=== PATIENT | female | born 1950 | race Asian ===

== ENCOUNTER → 2016-09-08 | Outpatient (CLI) | payer MEDICARE ==
[~2016-09-08] MED LIST: ACET-784 PO; ACET1TAB12 PO; ALBU8.5H IH; AMLO2.5T PO; ASPI-1093 PO; CA C1TAB73 PO; FAMO20 PO; FOLI1CAP2 PO; INSLAN SQ; INSU100C3 SQ; LEVO5TAB13 PO; LISI-661 PO; METF500T4 PO; METF500T7 PO; METO25 PO; MONT10TA21 PO; OMEG-53 PO; OMEP20 PO; PARO10OR3 PO; PRAV20TA4 PO; PREG50 PO; SIMV40TA5 PO
[2016-09-08 12:14] LABS: ALBUMIN 3.9 g/dL (3.4-5.0); BILIRUBIN,TOTAL 0.6 mg/dL (0.1-1.0); CALCIUM, TOTAL 9.5 mg/dL (8.8-10.5); CHOL/HDL RATIO 2.9 (3.9-5.7); CREATININE 0.98 mg/dL (0.60-1.30); POTASSIUM 4.9 mmol/L (3.5-5.1)
[2016-09-08 13:07] LABS: APPEARANCE,URINE CLEAR (CLEAR); GLUCOSE, URINE (UA) NEGATIVE (NEGATIVE); KETONES,URINE NEGATIVE (NEGATIVE); LEUKOCYTE ESTERASE ,URINE MODERATE (NEGATIVE); OCCULT BLOOD,URINE NEGATIVE (NEGATIVE); PROTEIN,URINE TRACE (NEGATIVE)
[2016-09-08 13:09] LABS: ADD UA MICROSCOPIC YES
[2016-09-08 13:21] LABS: RBC,URINE 0-2 /HPF (0-2); SQUAMOUS EPITHELIAL CELL,UR Few /LPF (None Seen)
== END | disposition home or self-care (01) ==
LOC: LABPV 09:53
PROVIDERS: ATTEND Internal Medicine Nephrology
DX: I12.9 Hypertensive chronic kidney disease with stage 1 through stage 4 chronic kidney disease, or unspecified chronic kidney disease (principal); N18.3 Chronic kidney disease, stage 3 (moderate); E11.22 Type 2 diabetes mellitus with diabetic chronic kidney disease; E78.5 Hyperlipidemia, unspecified
CPT/HCPCS: 82306; 82570; 84156; 87086

== ENCOUNTER 2016-10-08 08:46 | Day surgery (SDC) | payer MEDICARE ==
[~2016-10-08] VITALS: Ht 147.3 cm; Wt 65.9 kg
[~2016-10-08 08:46] MED LIST changes: +0.9% SODIUM CHLORIDE 10 ML SYRINGE IVP PRN; -ACET-784 PO; -ASPI-1093 PO; -LEVO5TAB13 PO; -METF500T4 PO; -METO25 PO; -OMEP20 PO; -PRAV20TA4 PO
[2016-10-08] MEDS ORDERED: ACET-784 PO (09:19)
[2016-10-08] MEDS ORDERED: ASPI-1093 PO (09:37)
[2016-10-08] MEDS ORDERED: OMEP20 PO (09:37)
[2016-10-08] MEDS ORDERED: PRAV20TA4 PO (09:37)
[2016-10-08] MEDS ORDERED: LEVO5TAB13 PO (09:37)
[2016-10-08] MEDS ORDERED: METO25 PO (09:37)
[2016-10-08 09:47] LABS: CALCIUM, TOTAL 9.1 mg/dL (8.8-10.5); CREATININE 1.33 mg/dL (0.60-1.30)
[2016-10-08] MEDS ORDERED: METOPROLOL TARTRATE 50 MG TABLET PO ONE (10:00)
[2016-10-08] MEDS ORDERED: SODIUM BICARBONATE 150 MEQ in DEXTROSE 5%-WATER 850 ML IV ONE (11:00)
[2016-10-08] MEDS ORDERED: IOVERSOL 350 MG/ML 150 ML VIAL ONE (11:30)
[2016-10-08] MEDS ORDERED: SODIUM CHLORIDE 0.9% 100 ML ONE (11:30)
[2016-10-08] MEDS ORDERED: METOPROLOL TARTRATE 5 MG/5 ML VIAL ONE (11:59)
[2016-10-08] MEDS ORDERED: NITROGLYCERIN 400 MCG/SUBLINGUAL SPRAY 4.9 GM BOTTLE SL ONE (11:59)
[2016-10-08] MEDS ORDERED: METF500T4 PO (15:03)
== END 2016-10-08 14:30 | disposition home or self-care (01) ==
LOC: SDS 08:46 → EDSTATUS 11:00 → SDS 14:30
PROVIDERS: ATTEND Internal Medicine Cardiovascular Disease
DX: R07.9 Chest pain, unspecified (principal)
CPT/HCPCS: 36415; 75574; 80048; 93005; J3490; J7050; J7060; Q9967

== ENCOUNTER 2016-12-12 06:49 | Emergency (ER) | payer MEDICARE ==
[~2016-12-12] VITALS: Ht 149.9 cm; Wt 52.3 kg
[~2016-12-12 06:49] MED LIST changes: -0.9% SODIUM CHLORIDE 10 ML SYRINGE IVP PRN; +ACET-784 PO; -ACET1TAB12 PO; -ALBU8.5H IH; +ASPI-1093 PO; -FAMO20 PO; -FOLI1CAP2 PO; +LEVO5TAB13 PO; -LISI-661 PO; +METF500T4 PO; -METF500T7 PO; +METO25 PO; -MONT10TA21 PO; +OMEP20 PO; -PARO10OR3 PO; +PRAV20TA4 PO; -PREG50 PO; -SIMV40TA5 PO
[2016-12-12 07:07] LABS: GLUCOSE,POINT OF CARE 185 MG/DL (70-110)
[2016-12-12] MEDS ORDERED: ONDANSETRON HCL 4 MG/2 ML VIAL IVP ONE (08:00)
[2016-12-12] MEDS ORDERED: ALBUTEROL SULFATE 2.5 MG/0.5 ML NEB SOLUTION NEB ONE (08:00)
[2016-12-12] MEDS ORDERED: SODIUM CHLORIDE 0.9% 1,000 ML IV ONE (08:00)
[2016-12-12] MEDS ORDERED: IPRATROPIUM BROMIDE 0.5 MG/2.5 ML NEB SOLUTION NEB ONE (08:00)
[2016-12-12] MEDS ORDERED: 0.9% SODIUM CHLORIDE 5 ML NEB SOLUTION NEB ONE (08:13)
[2016-12-12 08:26] LABS: EOSINOPHILS % (AUTO) 1.1 % (1.0-6.0); HEMATOCRIT 39.3 % (36-46); HEMOGLOBIN 12.8 g/dL (12.0-16.0); LYMPHOCYTES # (AUTO) 0.5 K/uL (1.0-4.8); MEAN CORPUSCULAR HEMOGLOBIN 28.9 pg (26.0-34.0); MEAN CORPUSCULAR HGB CONC 32.6 G/dL (31.0-37.0); MEAN CORPUSCULAR VOLUME 88 fL (80-100); MONOCYTES # (AUTO) 0.1 K/uL (0.1-1.0); MONOCYTES % (AUTO) 0.6 % (2.0-9.0); NEUTROPHILS # (AUTO) 11.4 K/uL (1.8-7.7); PLATELET COUNT (AUTO) 189 K/uL (150-450); RED BLOOD CELL COUNT(AUTO) 4.45 MIL/uL (4.00-5.20); RED CELL DISTRIBUTION WIDTH 13.5 % (11.5-14.5); WHITE BLOOD COUNT (AUTO) 12.1 K/uL (4.5-11.0)
[2016-12-12 08:27] LABS: NEUTROPHILS % (AUTO) 94.3 % (40.0-70.0)
[2016-12-12 08:37] LABS: CALCIUM, TOTAL 8.9 mg/dL (8.8-10.5); CREATININE 1.42 mg/dL (0.60-1.30)
[2016-12-12 08:42] LABS: ALBUMIN 3.8 g/dL (3.4-5.0); BILIRUBIN,TOTAL 0.6 mg/dL (0.1-1.0); TOTAL PROTEIN, SERUM 7.9 g/dL (6.4-8.2)
[2016-12-12 10:11] VITALS: BP 132/69
== END 2016-12-12 10:36 | disposition home or self-care (01) ==
LOC: EMS 06:51
DX: J98.01 Acute bronchospasm (principal); R11.2 Nausea with vomiting, unspecified; R19.7 Diarrhea, unspecified; J45.909 Unspecified asthma, uncomplicated; E11.9 Type 2 diabetes mellitus without complications; I10 Essential (primary) hypertension; E78.00 Pure hypercholesterolemia, unspecified; Z79.4 Long term (current) use of insulin; Z79.82 Long term (current) use of aspirin
CPT/HCPCS: 36415; 71020; 80053; 82962; 85025; 94640; 96372; 99285; J2405; J7030

== ENCOUNTER 2023-08-29 09:48 | Emergency (ER) | payer MEDICARE, MEDICAID ==
[~2023-08-29] VITALS: Ht 149.9 cm; Wt 145.0 kg
[~2023-08-29 09:48] MED LIST changes: -AMLO2.5T PO; +AMLO2.5T96 PO; -ASPI-1093 PO; +ASPI-1444 PO; +METF-1211 PO; -METF500T4 PO
[2023-08-29 09:52] VITALS: BP 150/57; PULSE 70; RESP 16; TEMP 97.7
[2023-08-29 10:44] LABS: EOSINOPHILS % (AUTO) 2.3 % (1.0-6.0); HEMATOCRIT 41.5 % (36-46); HEMOGLOBIN 13.6 g/dL (12.0-16.0); LYMPHOCYTES % (AUTO) 39.2 % (22.0-44.0); MEAN CORPUSCULAR HEMOGLOBIN 29.1 pg (26.0-34.0); MEAN CORPUSCULAR HGB CONC 32.7 G/dL (31.0-37.0); MEAN CORPUSCULAR VOLUME 89 fL (80-100); MONOCYTES # (AUTO) 0.4 K/uL (0.1-1.0); NEUTROPHILS # (AUTO) 2.6 K/uL (1.8-7.7); NEUTROPHILS % (AUTO) 49.5 % (40.0-70.0); PLATELET COUNT (AUTO) 194 K/uL (150-450); RED BLOOD CELL COUNT(AUTO) 4.66 MIL/uL (4.00-5.20); RED CELL DISTRIBUTION WIDTH 13.8 % (11.5-14.5); WHITE BLOOD COUNT (AUTO) 5.2 K/uL (4.5-11.0)
[2023-08-29 10:59] LABS: CALCIUM, TOTAL 9.4 mg/dL (8.8-10.5); CREATININE 1.04 mg/dL (0.60-1.30); POTASSIUM 4.1 mmol/L (3.5-5.1)
[2023-08-29 11:05] LABS: ALBUMIN 4.3 g/dL (3.4-5.0); BILIRUBIN,TOTAL 0.6 mg/dL (0.1-1.0); TOTAL PROTEIN, SERUM 7.9 g/dL (6.4-8.2)
[2023-08-29] MEDS ORDERED: DIPHENOXYLATE/ATROP 2.5-0.025 MG TABLET PO ONE (14:00)
[2023-08-29] MEDS ORDERED: SODIUM CHLORIDE 0.9% 1,000 ML IV ONE (14:00)
[2023-08-29] MEDS ORDERED: METF-445 PO (14:07)
[2023-08-29] MEDS ORDERED: CHOL25TA4 PO (14:07)
[2023-08-29] MEDS ORDERED: EMPA25TA3 PO (14:07)
[2023-08-29] MEDS ORDERED: INSU100V SQ (14:07)
[2023-08-29 14:41] LABS: GLUCOMETER DEV NAME(LOC) ER.6; GLUCOSE,POINT OF CARE 105 MG/DL (70-110)
[2023-08-29] MEDS ORDERED: DIPH-1130 PO ×2 (14:56→16:52)
== END 2023-08-29 16:10 | disposition still patient (30) ==
LOC: EMS 09:48
DX: E86.0 Dehydration (principal); R19.7 Diarrhea, unspecified; E11.9 Type 2 diabetes mellitus without complications; E78.00 Pure hypercholesterolemia, unspecified; I10 Essential (primary) hypertension; Z90.710 Acquired absence of both cervix and uterus
CPT/HCPCS: 99283; 80053; 82150; 82962; 83690; 85025; 36415; J7030